=== PATIENT | female | born 1970 | race Caucasian/White ===

== ENCOUNTER 2020-10-15 08:58 | Outpatient (CLI) | payer OTHER, SELFPAY ==
[2020-10-15 15:45] LABS: SARS-CoV-2 RNA PCR Negative (Negative)
== END 2020-10-15 08:59 | disposition home or self-care (01) ==
PROVIDERS: Visit Provider Family Medicine
DX: Z01.818 Encounter for other preprocedural examination (principal); Z20.822 Contact with and (suspected) exposure to COVID-19
CPT/HCPCS: C9803; U0003; U0005